=== PATIENT | male | born 1995 | race Caucasian/White ===

== ENCOUNTER 2025-05-12 22:33 | Emergency (ER) | payer BC, SELFPAY ==
--- OUTSIDE RECORDS SUMMARY | 2025-05-12 22:34 | XMS_ITS | Clinical Summary ---
Author Organization [facility] Address [address] [place] [id number] Care Team Providers Care Pump Operator Name Role Phone Clinic, No Pcp Or Primary Care Provider Unavaila ble Allergies Active AllergyReactionsCriticalityNoted DateCommentsAcetaminophen*Unknown - Childhood Rxn07/08/2023 Medications No known medications Active Problems No known active problems Family History Medical HistoryRelationNameCommentsDiabetesFatherHeart DiseaseMaternal GrandfatherDiabetesMotherRelationNameStatusCommentsFatherMaternal Grandfather Mother Social History Tobacco UseTypesPacks/DayYears UsedDateSmoking Tobacco: NeverSmokeless Tobacco: Never Tobacco Cessation:Counseling Given: Yes Alcohol UseStandard Drinks/WeekCommentsYes0 (1 standard drink = 0.6 oz pure alcohol)2 glasses per monthPHQ-2AnswerDate RecordedPHQ-2 TOTAL VAICU490 Social ConnectionsAnswerDate RecordedDo you often feel lonely or isolated from those around you?Financial Resource StrainAnswerDate Recorded Difficulty of Paying Living Vlwdarnn329ifficulty of Paying Living ExpensesNot on file07/08/2023Food InsecurityAnswerDate RecordedDo you worry your food will run out before you are able to buy more?Transportation NeedsAnswerDate RecordedDoes lack of transportation keep you from medical appointments?oes lack of transportation keep you from work, meetings or getting things that you need?Housing StabilityAnswerDate Recorded What is your housing situation today?UtilitiesAnswerDate RecordedDo you have trouble paying for utilities (for example, heat, electricity, water, phone)?Sex and Gender InformationValueDate RecordedSex Assigned at BirthNot on fileLegal BsyZvgw4210/18/2013 10:04 AM CDTGender IdentityNot on file Sexual OrientationNot on file Last Filed Vital Signs Vital SignReadingTime TakenCommentsBlood Rymiikba281/7907/08/2023 10:57 AM PAD ASSEMBLER Insub1394 10:57 AM CSTTemperature--Respiratory Rate--Oxygen Saturation 97%07/08/2023 10:57 AM CSTInhaled Oxygen Concentration--Qlrjmz994.4 kg (261 lb 1.6 oz)07/08/2023 10:57 AM QWKWjgsgr050.6 cm (5' 8.74)07/08/2023 10:57 AM PAD ASSEMBLER Body Mass Index38.85007/08/2023 10:57 AM PAD ASSEMBLER Plan of Treatment Health MaintenanceDue DateLast DoneCommentsTetanus mmhialw0209/08/2005HIV for age 15-65009/08/2009Hepatitis C screening for age 18-7909/08/2012Hepatitis B series for 19+ (1 of 3 - 19+ 3-dose series)2013HPV series for age 9-45 (1 - 3- dose SCDM series)2BMI (ht and wt on same day) for age 18+07/08/2024 07/08/2023epression screening for age 12+504COVID-19 vaccine series (2024- season), 06/16/2022, 03/20/2021, Additional history existsInfluenza Vaccine (#1)01/22/2025Pneumococcal series for age 6-49Aged OutNo longer eligible based on patient's age to complete this topic Insurance Care Teams Team MemberRelationshipSpecialtyStart DateEnd Date Clinic, No Pcp Or . PCP - General10/18/13
[2025-05-12 23:42] VITALS: BP 144/87; PULSE 96; RESP 18; TEMP 36.7; O2SAT 96; BMI 40.9
--- NOTE | 2025-05-12 23:45 | CRLHL7_ITS ---
For Patients: As a result of the Cures Act, medical imaging exams and procedure reports are released immediately into your electronic medical record. You may view this report before your referring provider. If you have questions, please contact your health care provider. Indication: Trauma. Technique: Right hand 3 views. Comparison: None. Findings/Impression: Bones: Acute nondisplaced fracture in the distal tuft of the right 5th finger. No other osseous abnormality. Joint spaces: Unremarkable. Soft tissues: Soft tissue injury in the area of the fracture. Dictated by Edmund Hamilton MD @ 05/13/2025 12:17:14 AM (Electronically Signed)
--- NOTE | 2025-05-13 00:44 | ED_ITS ---
HPI - Extremity Injury (Upper) General Time Seen by Provider: 00:44 Date Seen: 05/13/25 Chief Complaint: Extremity Pain/Injury, Upper Stated Complaint: right pinky injury Time Seen by Provider: 05/13/25 00:44 Source: patient and RN notes reviewed Mode of arrival: ambulatory Limitations: no limitations History of Present Illness HPI narrative: This 29-year-old male comes in with concern of a right 5th finger injury. He unfortunately got his right 5th finger stuck in a car door tonight at about 7:00 p.m.. The finger was initially bleeding but has subsequently stopped. It was bandaged by family member with some medical knowledge. He took some Tylenol at home. He told nursing staff his pain was about 2/10 on arrival. Does not know his tetanus status. Due to the volume and acuity when patient was in the ED, nursing staff did do x-ray, there is a tuft fracture of the involved digit. This is reviewed with him upon meeting him. complaint: injury to: right and finger (Fifth) Related Data Previous Rx's ?Medication ?Instructions ?Recorded cephalexin 500 mg tablet 500 mg PO TID #15 tabs 05/13 Allergies Allergy/AdvReac Type Severity Reaction Status Date / Time No Known Drug Allergies Allergy Verified 04/27/25 08:40 Review of Systems Narrative: As per HPI. PFSH PFSH Social History Smoking Status: Never smoker Do you use any of these nicotine containing products: None How often do you have a drink containing alcohol: monthly or less AUDIT-C Alcohol total score: 1 Non-prescribed substance use: denies use service: No Exam Const: Vital Signs, click to edit/add: Vital Signs - 24 hr 05/12/25 23:42 Temperature 98.0 F Pulse Rate [Pulse Oximeter] 96 Respiratory Rate 18 Blood Pressure [Ri ght Upper Arm] 144/87 H Pulse Oximetry 96 Oxygen Delivery Me thod Room Air Patient's left 5th finger is bandaged, there is no bleeding through the bandaging. This was taken down. Has full flexion extension of the finger, he has the base of his nail still present, the distal 2/3 have been completely lost. I see no fracture within the tissues of the exposed nail bed. There is a little oozing of blood but nothing significant. There is no need for any repair. He is tender along the pad of the finger but no open wound there. We reviewed that this area will be tender due to the tuft fracture. Documenting provider has reviewed patient's vital signs: yes Course Course ED Course: Found a foam finger protector that I think will work in not cause him too much pain. Nursing staff is going to use bacitracin and bandage the of distal exposed nail bed. Patient understands that this nail may not grow out normally, we have discussed expectations of what he might see. We will give him initial antibiotics as there is a tuft fracture and he does have some open tissue due to loss the distal 2/3 of the fingernail. Nursing staff look up his tetanus, make sure that this is up-to-date, we will otherwise updated if not. Reevaluation(s) Time of Reevaluation #1: 01:03 Reevaluation #1: Last tetanus is listed as a TD on 09/24/2005. Thus Tdap has been ordered tonight. Vital Signs Vital signs: Initial Vital Signs Temperature 98.0 F 05/12/25 23:42 Temperature Source Temporal Artery Scan 05/12/25 23:42 Pulse Rate 96 05/12/25 23:42 Pulse Rhythm Regular 05/12/25 23:42 Respiratory Rate 18 05/12/25 23:42 Blood Pressure 144/87 H 05/12/25 23:42 Blood Pressure Mean 106 H 05/12/25 23:42 Blood Pressure Position Sitting 05/12/25 23:42 Pulse Oximetry 96 05/12/25 23:42 Oxygen Delivery Method Room Air 05/12/25 23:42 Vital Signs Temperature 98.0 F 05/12/25 23:42 Pulse Rate 96 05/12/25 23:42 Respiratory Rate 18 05/12/25 23:42 Blood Pressure 144/87 H 05/12/25 23:42 Pulse Oximetry 96 05/12/25 23:42 Oxygen Delivery Method Room Air 05/12/25 23:42 Temperature 98.0 F 05/12/25 23:42 Pulse Rate 96 05/12/25 23:42 Respiratory Rate 18 05/12/25 23:42 Blood Pressure 144/87 H 05/12/25 23:42 Pulse Oximetry 96 05/12/25 23:42 Oxygen Delivery Method Room Air 05/12/25 23:42 Medications Administered Medications: Discontinued Medications Generic Name Dose Route Start Last Admin Trade Name Freq PRN Reason Stop Dose Admin Bacitracin Zinc 1 each 05/13/25 01:12 05/13/25 01:20 Bacitracin 0.9 Gm Packet TOPICAL 05/13/25 01:13 1 each ONCE ONE Administration Diphtheria/Tetanus/Acell Pertussis 0.5 ml 05/13/25 01:02 05/13/25 01:18 Tetanus/Diphth/Pertussis 0.5 Ml Syringe IM 05/13/25 01:03 0.5 ml .ONCE ONE Administration MDM - Extremity Injury (Upper) Imaging Data XR finger: Attestation: I have reviewed the pertinent imaging results. Radiologist's impression: Patient: RUI BARRETT Facility:?[facility] Patient ID:?[id number] Site Patient ID:?[id number]. Site :?[id number] Study:?XRay-Extremity Right HAND 3V-05/13/2025 12:02:46 AM Ordering Physician:?PROVIDER TEMP Final Report: Indication: Trauma. Technique: Right hand 3 views. Comparison: None. Findings/Impression: Bones: Acute nondisplaced fracture in the distal tuft of the right 5th finger. No other osseous abnormality. Joint spaces: Unremarkable. Soft tissues: Soft tissue injury in the area of the fracture. Dictated by Edmund Hamilton MD @ 05/13/2025 12:17:14 AM (Electronic Signature) Discharge Plan Discharge Clinical Impression: Closed fracture of tuft of distal phalanx of finger Partial avulsion of fingernail Qualifiers: Encounter type: initial encounter Qualified Code(s): S61.309A - Unspecified open wound of unspecified finger with damage to nail, initial encounter Patient Disposition: Home, Self-Care Condition: Stable Instructions: Finger Fracture (ED), Nail Avulsion (ED) Additional Instructions: Use the finger splint as needed for comfort, hopefully the finger will feel better in a few weeks, may find some soreness potentially up to 6-8 weeks. If the fingers remaining quite sore, would recommend follow up in clinic and consider reimaging. Use bacitracin and bandages to the nail bed where you of loss the fingernail. Can use Tylenol or ibuprofen per bottle directions as needed for pain control. If there are any concerns with the wound or the healing of this finger, please seek re-evaluation. Activity Level: Activity as Tolerated Prescriptions: New cephalexin 500 mg tablet 500 mg PO TID Qty: 15 0RF Follow Up/Referrals: Provider,Not a Local [Primary Care Provider, Family Practice] Stand Alone Forms: [employer] Info Instructions
--- OUTSIDE RECORDS SUMMARY | 2025-05-13 01:09 | XMS_ITS | Clinical Summary ---
Author Organization [facility] Address [address] [place] [id number] Care Team Providers Care Educational Diagnostician Name Role Phone Clinic, No Pcp Or [...] pure alcohol)2 glasses per monthPHQ-2AnswerDate RecordedPHQ-2 TOTAL [id number] Social ConnectionsAnswerDate RecordedDo you often feel lonely or isolated from those around you?Financial Resource StrainAnswerDate Recorded Difficulty of Paying Living Gvvocbat622ifficulty of Paying Living ExpensesNot on file07/08/2023Food InsecurityAnswerDate [...] InformationValueDate RecordedSex Assigned at BirthNot on fileLegal BybLdcc5910/18/2013 10:04 AM CDTGender IdentityNot on file Sexual OrientationNot on file Last Filed Vital Signs Vital SignReadingTime TakenCommentsBlood Oklgwevd952/7907/08/2023 10:57 AM MULTIMEDIA PRODUCER Okgfe6641 10:57 AM CSTTemperature--Respiratory Rate--Oxygen Saturation 97%07/08/2023 10:57 AM CSTInhaled Oxygen Concentration--Nnaylb253.4 kg (261 lb 1.6 oz)07/08/2023 10:57 AM ODEEkwqce097.6 cm (5' 8.74)07/08/2023 10:57 AM MULTIMEDIA PRODUCER Body Mass Index38.85007/08/2023 10:57 AM MULTIMEDIA PRODUCER Plan of Treatment Health MaintenanceDue DateLast DoneCommentsTetanus thiiugi5209/08/2005HIV for age 15-65009/08/2009Hepatitis C screening for age [...]
[2025-05-13] MEDS: TETANUS/DIPHTH/PERTUSSIS 0.5 ML SYRINGE IM (01:18)
[2025-05-13] MEDS: BACITRACIN 0.9 GM PACKET 1 EACH TOPICAL (01:20)
== END 2025-05-13 01:24 | disposition home or self-care (01) ==
LOC: ED 05-13 01:08
PROVIDERS: Emergency Provider Family Medicine
DX: S62.666A Nondisplaced fracture of distal phalanx of right little finger, initial encounter for closed fracture (principal); W23.0XXA Caught, crushed, jammed, or pinched between moving objects, initial encounter; S61.306A Unspecified open wound of right little finger with damage to nail, initial encounter; Z23 Encounter for immunization
CPT/HCPCS: 29130; 73130; 90471; 90715; 99283; A9270